=== PATIENT | female | born 1995 | race African-American/Black ===

== ENCOUNTER 2017-12-04 09:41 | Emergency (ER) | payer OTHER ==
[~2017-12-04] VITALS: Ht 162.6 cm; Wt 118.0 kg
[2017-12-04 10:15] VITALS: BP 165/105
[2017-12-04] MEDS ORDERED: MOTRIN (10:15)
[2017-12-04] MEDS ORDERED: TYLENOL (10:15)
[2017-12-04] MEDS ORDERED: HYDROCODONE/ACETAMINOPHEN 5/325MG TABLET PO ONE (11:00)
[2017-12-04] MEDS ORDERED: KETOROLAC 60MG/2ML VIAL IM ONE (11:00)
[2017-12-04 11:28] LABS: HCG SCREEN NEGATIVE
== END 2017-12-04 13:20 | disposition home or self-care (01) ==
LOC: ER 09:41
DX: S83.92XA Sprain of unspecified site of left knee, initial encounter (principal); X50.1XXA Overexertion from prolonged static or awkward postures, initial encounter; Y93.89 Activity, other specified; Y92.59 Other trade areas as the place of occurrence of the external cause; F17.210 Nicotine dependence, cigarettes, uncomplicated; F12.10 Cannabis abuse, uncomplicated
CPT/HCPCS: 73562; 84703; 96372; 99285; J1885